=== PATIENT | female | born 1985 | race Hispanic/Latino ===

== ENCOUNTER 2021-06-02 10:12 | Emergency (ER) | payer MEDICAID ==
[2021-06-02 11:38] VITALS: BP 136/73
--- NOTE | 2021-06-02 12:18 | XRay Report ---
LEFT ANKLE 3 VIEWS INDICATION: ankle pain s/p twisting it. COMPARISON: None. IMPRESSION: There is moderate to severe lateral soft tissue swelling. Normal bone mineralization. M ild to moderate osteoarthritic changes are identified. No acute fracture is appreciated. Small to med ium plantar spur is noted. Signer Name: Costa Arauz Jr, MD Signed: 06/02/2021 12:13 PM Workstation Name: [id number]
--- NOTE | 2021-06-02 12:36 | Emergency Department Report ---
ED Lower Extremity HPI - General Chief Complaint: Extremity Problem,Nontraumatic Stated Complaint: TWISTED FELTON Time Seen by Provider: 06/02/21 11:33 Source: patient Mode of arrival: Ambulatory Limitations: No Limitations - History of Present Illness Initial Comments: This is a 35-year-old female nontoxic, well nourished in appearance, no acute signs of distress presents to the ED with c/o of left ankle pain 1 day. Patient stated that she was walking twisted her left ankle. Patient denies any other injuries or trauma. Patient denies any numbness, tingling, fever, chills, nausea, vomiting, chest pain, shortness of breath, headache, stiff neck. Patient denies any joint swelling or joint redness. Patient denies decreased range of motion. Patient stated has decreased gait due to pain. Patient stated allergies to medroxyprogesterone. Complaint: ankle injury -: days(s) Injury: Ankle: Left Type of Injury: inversion Place: street/outdoors Severity: mild Severity scale (0 -10): 8 Improves With: immobilization Worsens With: weight bearing, movement, palpation Associated Symptoms: swelling, able to partially bear weight. denies: snap/pop sensation, numbness, tingling, unable to bear weight - Related Data Previous Rx's Medication Instructions Recorded Last Taken Type Naproxen 500 mg PO Q12H PRN #12 tablet 06/02/21 Unknown Rx Allergies Allergy/AdvReac Type Severity Reaction Status Date / Time medroxyprogesterone Allergy Rash Verified 06/02/21 11:34 [From Depo-Provera] ED Review of Systems ROS: Stated complaint: ALEXANDRA YA Other details as noted in HPI Comment: All other systems reviewed and negative Constitutional: denies: chills, fever Eyes: denies: eye pain, eye discharge, vision change ENT: denies: ear pain, throat pain Respiratory: denies: cough, shortness of breath, wheezing Cardiovascular: denies: chest pain, palpitations Endocrine: no symptoms reported Gastrointestinal: denies: abdominal pain, nausea, diarrhea Genitourinary: denies: urgency, dysuria, discharge Musculoskeletal: denies: back pain, joint swelling, arthralgia Skin: denies: rash, lesions Neurological: denies: headache, weakness, paresthesias Psychiatric: denies: anxiety, depression Hematological/Lymphatic: denies: easy bleeding, easy bruising ED Past Medical Hx - Past Medical History Previous Medical History?: Yes Hx Hypertension: Yes Hx Diabetes: (gestational) - Surgical History Past Surgical History?: Yes Additional Surgical History: 2 c-sections - Medications Home Medications: Home Medications Medication Instructions Recorded Confirmed Last Taken Type Naproxen 500 mg PO Q12H PRN #12 tablet 06/02/21 Unknown Rx ED Physical Exam - General Limitations: No Limitations General appearance: alert, in no apparent distress - Head Head exam: Present: atraumatic, normocephalic - Eye Eye exam: Present: normal appearance - Neck Neck exam: Present: normal inspection, full ROM - Respiratory Respiratory exam: Absent: respiratory distress - Cardiovascular Cardiovascular Exam: Present: regular rate - Extremities Exam Extremities exam: Present: normal inspection, full ROM, tenderness, normal capillary refill. Absent: joint swelling, calf tenderness - Expanded Lower Extremity Exam Left Hip exam: Present: normal inspection, full ROM. Absent: tenderness, swelling Upper Leg exam: Present: normal inspection, full ROM. Absent: tenderness, swelling Knee exam: Present: normal inspection, full ROM. Absent: tenderness, swelling Lower Leg exam: Present: normal inspection, full ROM. Absent: tenderness, swelling Ankle exam: Present: full ROM, tenderness, swelling, ecchymosis. Absent: abras ion, laceration, deformity, crepidus, dislocation, erythema, anterior draw sign Foot/Toe exam: Present: normal inspection, full ROM. Absent: tenderness, swelling Neuro vascular tendon exam: Present: no vascular compromise Gait: Positive: observed and limited by pain 1 - Pain and swelling here - Back Exam Back exam: Present: normal inspection, full ROM - Neurological Exam Neurological exam: Present: alert, oriented X3 - Psychiatric Psychiatric exam: Present: normal affect, normal mood - Skin Skin exam: Present: warm, dry, intact, normal color. Absent: rash - Other Other exam information: Negative Nam test ED Course Vital Signs 06/02/21 11:36 Temperature 97.9 F Pulse Rate 81 Respiratory 18 Rate Blood Pressure 136/73 O2 Sat by Pulse 99 Oximetry - Reevaluation(s) Reevaluation #1: 06/02/21 12:33 Patient is speaking in full sentences with no signs of distress noted. ED Lower Extremity MDM - Radiology Data [facility] [address] [place] [address] XRay Report Signed Patient: SHERRILL BUENROSTRO MR#: [id number] : 1985 Acct:[id number] Age/Sex: 35 / F ADM Date: 06/02/21 Loc: ED Attending Dr: Ordering Physician: ULI GARCIA NP Date of Service: 06/02/21 Procedure(s): XR ankle 3+V LT Accession Number(s): [id number] cc: ULI GARCIA NP Fluoro Time In Minutes: LEFT ANKLE 3 VIEWS INDICATION: ankle pain s/p twisting it. COMPARISON: None. IMPRESSION: There is moderate to severe lateral soft tissue swelling. Normal bone mineralization. Mild to moderate osteoarthritic changes are identified. No acute fracture is appreciated. Small to medium plantar spur is noted. Signer Name: Costa Arauz Jr, MD Signed: 06/02/2021 12:13 PM Workstation Name: [id number] Transcribed By: TTR Dictated By: COSTA ARAUZ JR, MD Electronically Authenticated By: COSTA ARAUZ JR, MD Signed Date/Time: 06/02/21 121 DD/ 12 TD/TT: - Medical Decision Making This is a 35-year-old female that presents with left knee sprain. Patient is stable and was examined by me. I referred patient to an orthopedic doctor for further evaluation for possible MRI. X-ray has been obtained and dictated by the radiologist. Patient is notified of the x-ray report with noted by the patient. Patient received a ankle stirrup and crutches and was educated by RN how to use crutches. Patient was instructed to RICE therapy. Patient is discharged with naproxen. At time of discharge, the patient does not seem toxic or ill in appearance. No acute signs of distress noted. Patient agrees to discharge treatment plan of care. No further questions noted by the patient. Critical care attestation.: If time is entered above; I have spent that time in minutes in the direct care of this critically ill patient, excluding procedure time. ED Disposition Clinical Impression: Left ankle sprain Qualifiers: Encounter type: initial encounter Involved ligament of ankle: unspecified ligament Qualified Code(s): S93.402A - Sprain of unspecified ligament of left ankle, initial encounter Disposition: TO HOME OR SELFCARE Is pt being admited?: No Does the pt Need Aspirin: No Condition: Stable Instructions: Ankle Sprain, RICE Therapy for Routine Care of Injuries, [id number], Crutch Use, Adult, [id number] Additional Instructions: Follow-up with orthopedic doctor in 3-5 days or if symptoms worsen and continue return to emergency room as soon as possible. No physical activity that extremity until cleared by orthopedic doctor Prescriptions: Naproxen 500 mg PO Q12H PRN #12 tablet PRN Reason: Pain , Severe (7-10) Referrals: PRIMARY CARE, [Referring] - 3-5 Days LB ARROYO MD [Staff Physician] - 3-5 Days Forms: Work/School Release Form(ED) Time of Disposition: 12:36
== END 2021-06-02 16:00 | disposition home or self-care (01) ==
LOC: ED 10:12
DX: S93.402A Sprain of unspecified ligament of left ankle, initial encounter (principal); I10 Essential (primary) hypertension; Z98.890 Other specified postprocedural states; Z88.8 Allergy status to other drugs, medicaments and biological substances; Z79.899 Other long term (current) drug therapy; X50.1XXA Overexertion from prolonged static or awkward postures, initial encounter; Y93.89 Activity, other specified; Y92.89 Other specified places as the place of occurrence of the external cause; Y99.8 Other external cause status
CPT/HCPCS: 99283